=== PATIENT | female | born 1970 | race Caucasian/White ===

== ENCOUNTER 2016-11-28 13:13 | Emergency (ER) | payer SELFPAY ==
[~2016-11-28] VITALS: Ht 167.6 cm; Wt 93.9 kg
[~2016-11-28 13:13] MED LIST: AMITRIPTYLINE 550 MG PO; CENTRUM1 TAB PO; KEFLEX 500MG.500 MG PO; METOPROLOL SUCC50 M1 PO; OMEPRAZOLE DR20 MG PO; PREDNISONE 20MG20 MG PO; PROZAC 20MG CAP20 MG PO
--- OUTSIDE RECORDS SUMMARY | 2016-11-28 13:21 | External Medical Summary Rpt ---
Author Author [employer] Organization [employer] Address Unknown Phone Unavailable Purpose Continuity of Care Document - through 2016
--- OUTSIDE RECORDS SUMMARY | 2016-11-28 13:21 | External Medical Summary Rpt ---
Demographics Preferred Language [place] Marital Status Unknown Quaker Affiliation Unknown Race Unknown Ethnic Group Unknown Author Author , Organization [employer] Address Unknown Phone Unavailable Purpose Continuity of Care Document - through 2016 Immunization No patient found.
--- OUTSIDE RECORDS SUMMARY | 2016-11-28 13:21 | External Medical Summary Rpt ---
Demographics Preferred Language [place] Marital Status Unknown Baptism Affiliation Unknown Race Unknown Ethnic Group Unknown Author Author , Organization [employer] Address Unknown Phone Unavailable Purpose Continuity of Care Document - through 2016 Immunization No patient found.
[2016-11-28] MEDS ORDERED: AMOXICILLIN875 MG PO (13:37)
--- NOTE | 2016-11-28 13:38 | Urgent Treatment Center Report ---
History of Present Issue Date/Time Seen by Provider 11/28/16 3492 Visit Reason Pt arrived:Walked Presenting Problem:PT STATES HAVING COLD/ALLERGY SYMPTOMS FOR TWO WEEKS. STATES NECK PAIN FOR TWO WEEKS WELL. STATES THIS MORNING SHE BEGAN HAVING PAIN IN HER RIGHT EAR Location if Accident: Onset of symptoms date/time:/ or onset unknown for:MEDICAL HX UNKNOWN Have you (or family members/close friends) recently traveled outside the [place]? N If Yes, where/when: Have you had exposure to infectious disease within the past month? TB? Other? Specify: c/o mild intermittent neck pain only on right side x 2 weeks. Fluctuates from neck to jaw pain. Associated w/ rhinorrhea, nasal congestion, sneezing the last 2-3 weeks "if not longer". Right ear pain started this morning "and I realized it was probably all related". Hasn't taken or tried anything consistently for symptoms. No known sick contacts. Denies ear drainage but hearing "muffled". No fever, aches, chills. Mild intermittent headaches but no difficulty with neck ROM. Source patient Exam Limitations no limitations ALLERGIES Uncoded Allergies: STEROIDS (11/28/16) History Medical History General CAD? No Angina: No MS: No Hypertension? Yes Hyperlipidemia? No CHF? No DVT? No PE? No COPD? No Asthma? No Anemia? No GERD? No Gastric ulcers? No GI Bleed? No Hernia? No Thyroid Problems? No Hypothyroidism? No CVA? No Seizures? No Diabetes? No Renal Insuffiency? No UTI? No Stones? No GB Disease: No Nephritic Syndrome? No Asplenia? No Hepatitis? No Sickle Cell Disease? No Arthritis? No Migraines? No Cataracts? No Glaucoma? No MRSA? No HIV? No TB? No Anxiety? No Depression? No Cancer? No Immunization HX DT/Tetanus Unknown Surgical Hx Previous Surgery?Y RIGHT HIP SURGERY KNEE SURGERY VERONICA CARPAL TUNNEL Social History Smoking Hx Smoker: Current Every Day Smoker Tobacco: Yes Type Cigarettes Packs/day < 1 Pack Alcohol Alcohol: No Review of Systems All Other Systems Reviewed and Negative Constitutional see HPI Eyes denies drainage ENT see HPI. denies: throat pain. Respiratory denies cough Cardiovascular denies chest pain Gastrointestinal denies no symptoms reported Skin denies rash Psychiatric/Neurological see HPI, denies other (dizziness) Physical Exam Vital Signs Vital Signs Date Time Temp Pulse Resp B/P Pulse O2 O2 Flow FiO2 Ox Delivery Rate 11/28 1348 98.4 78 18 192/109 98 11/28 1324 98.4 78 18 192/109 98 General Appearance normal appearance, no apparent distress, talkative Eye Exam - bilateral eye normal exam Ear, Nose, Throat normal pharynx, normal nares, left EAC and TM normal, right EAC normal but TM intact, bright red, bulging significantly, very tender Neck normal inspection, non-tender, supple, full range of motion Respiratory Status No: respiratory distress, productive cough, non productive cough. Lung Sounds anterior: lungs clear. posterior: lungs clear. bilateral: lungs clear. Cardiovascular regular rate/rhythm, no peripheral edema, no murmur Neurologic alert, oriented x 3 Mental status normal mood/affect Skin intact, normal color, warm/dry Lymphatic no adenopathy Medical Decision Making LABS/Meds/Orders Pt receiving controlled substance in ED? No Departure Departure Time of Disposition 1336 Disposition DC Home or Self Care(routine) Clinical Impression Primary Impression: Right otitis media Qualifiers: Otitis media type: unspecified Chronicity: unspecified Qualified Code: H66.91 - Otitis media, unspecified, right ear Secondary Impressions: High blood pressure Qualifiers: Hypertension type: essential hypertension Qualified Code: I10 - Essential (primary) hypertension Condition STABLE Referrals NO REFERRAL Primary care * Immediately for new or worsening symptoms, no noticeable improvement in 48-72 hours AND in 10-14 days to ensure ears are back to baseline. Patient Instructions DI for Otitis Media (Middle Ear Infection)-Child Additional Instructions * monitor your BP closely. Extremely elevated today. I am aware you have a history and haven't taken your medication. STRONGLY recommend you take your medication today and be sure to follow up if remains >140/90. * Start antibiotic GEORGE and be sure to take as ordered for the FULL length of time although you should start to feel better in 24-48 hours. * Monitor Temp. Tylenol every 4 hours as needed and/or ibuprofen every 6 hours as needed (as long as your primary care doctor has told you that it is ok to take both) for fever/aches/pain. ER if fever no less than 101 despite tylenol and ibuprofen * Encourage fluids, water, gatorade, powerade, pedialyte if /toddler/child * warm compress often helps when placed over ear * sleep elevated * Immediately for new or worsening symptoms, no noticeable improvement in 48-72 hours AND in 10-14 days to ensure ears are back to baseline. Discharge Counseling Counseled pt/family regarding diagnosis, medications/RX, home care, follow up needs Prescriptions Current Visit Scripts AMOXICILLIN (Amoxicillin 875MG Tab) 875 MG PO BID #20 TAB at 9180
[2016-11-28 13:48] VITALS: BP 192/109
== END 2016-11-28 13:49 | disposition home or self-care (01) ==
LOC: UTC 13:13
DX: H66.91 Otitis media, unspecified, right ear (principal); I10 Essential (primary) hypertension; Z72.0 Tobacco use

== ENCOUNTER 2017-02-18 21:59 | Emergency (ER) | payer SELFPAY ==
[~2017-02-18] VITALS: Ht 167.6 cm; Wt 98.9 kg
[~2017-02-18 21:59] MED LIST changes: +AMOXICILLIN875 MG PO
--- NOTE | 2017-02-18 23:14 | Emergency Room Report ---
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 N Clinical Suspician of Infection? N Mental Status: 1 - Regular (Normal Baseline) Sepsis Risk:Low Sepsis Risk Have you (or family members/close friends) recently traveled outside the [place]? N If Yes, where/when: Have you had exposure to infectious disease within the past month? N TB? Other? Specify: Source patient, RN notes reviewed, family, old records Exam Limitations no limitations Comment pt with elevated bp over the last few days with known hx of htn but has been off meds for several months - pt does not known which meds she was on- she reports not feeling well but no chest pain/sob or focal neuro sx - Cardiac Chest Pain Chest pain indicative of cardiac No Timing/Duration this evening Severity moderate ALLERGIES Uncoded Allergies: steroids (Intermediate, flusing and itching 02/18/17) Home Medications Active Scripts AMOXICILLIN (Amoxicillin 875MG Tab) 875 MG PO BID #20 TAB Prov: 11/28/16 History Medical History General CAD? No Angina: No [place]: No Hypertension? Yes Hyperlipidemia? No CHF? No DVT? No PE? No COPD? No Asthma? No Anemia? No GERD? No Gastric ulcers? No GI Bleed? No Hernia? No Thyroid Problems? No Hypothyroidism? No CVA? No Seizures? No Diabetes? No Renal Insuffiency? No End Stage Renal Disease? No UTI? No Stones? No GB Disease: No Nephritic Syndrome? No Asplenia? No Hepatitis? No Sickle Cell Disease? No Arthritis? No Migraines? No Cataracts? No Glaucoma? No MRSA? No HIV? No TB? No Anxiety? No Depression? No Cancer? 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 Respiratory denies cough, denies shortness of breath, denies wheezing Cardiovascular denies chest pain, denies palpitations, denies syncope Gastrointestinal denies abdominal pain, denies diarrhea, denies vomiting Genitourinary denies: dysuria. Musculoskeletal denies back pain, denies joint pain, denies neck pain Skin denies rash Psychiatric/Neurological denies headache, denies seizure Physical Exam Vital Signs Vital Signs Date Time Temp Pulse Resp B/P Pulse O2 O2 Flow FiO2 Ox Delivery Rate 02/19 0004 77 20 178/94 98 02/18 2348 76 20 178/107 97 02/18 2254 81 20 168/106 97 02/18 2212 98.8 88 20 160/111 97 - WBC >12,000 or <4,000 or 10% bands? 2 or more SIRS Criteria Met? B/P:178/94 MAP:127 Creatinine >2.0? UA output<0.5ml/kg/hr for 2 hrs? Platelet count >100,000? Lactate >2.0mmol/1? INR >1.2 or PTT > than 60 sec? Evidence of Organ Dysfunction? Provider documented clinical suspician of infection? N Sepsis Criteria Count: 1 Sepsis Risk: Low Sepsis Risk General Appearance no apparent distress Eye Exam - bilateral eye PERRL, bilateral eye EOMI Ear, Nose, Throat normal ENT inspection Neck supple Respiratory Status No: respiratory distress. Lung Sounds bilateral: lungs clear. 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 No Results/Orders Laboratory Tests 02/18/17 2330: Sodium 141, Potassium 3.5, Chloride 107, Carbon Dioxide 26, BUN 13, Creatinine 0.8, Estimated Creat Clear 139, Estimated GFR (MDRD) 78, Glucose 98, Calcium 8.4 L, Total Bilirubin 0.2, AST 8 L, ALT 13, Alkaline Phosphatase 91, Creatine Kinase 119, CK-MB (CK-2) Rel Index 0.4, CK and CKMB Interp < 0.5, Troponin I < 0.02, Total Protein 6.8, Albumin 3.5, Globulin 3.3 H, Albumin/Globulin Ratio 1.1, WBC 6.4, RBC 4.86, Hgb 14.8, Hct 45.5, MCV 93.7, RDW 13.2, Plt Count 157, MPV 10.1, Gran % 37.2, Gran # 2.4, Lymphocytes % 49.4, Monocytes % 6.9, Eosinophils % 5.8, Basophils % 0.6, Lymphocytes # 3.1, Monocytes # 0.4, Eosinophils # 0.4, Basophils # 0.0, PUBS MCHC 32.5, MCH 30.4 Current Medication Orders Sig/Paco Start time Last Medication Dose Route Stop Time Status Admin Clonidine HCl 0 .STK-MED ONE 02/18 2325 DC .ROUTE Clonidine HCl 0.1 MG ONCE ONE 02/18 2315 DC 02/18 PO 02/184 Orders Procedure Date/time Status COMPLETE METABOLIC PANEL 02/18 2314 Complete CBC WITH AUTO DIFF 02/18 2314 Complete CARDIAC ENZYMES 02/18 2314 Complete Departure Departure Time of Disposition 0028 Disposition DC Home or Self Care(routine) Clinical Impression Primary Impression: Hypertension Qualifiers: Hypertension type: essential hypertension Qualified Code: I10 - Essential (primary) hypertension Condition STABLE Patient Instructions Treatments for High Blood Pressure: More Than Just Taking a Pill Additional Instructions use meds and see pcp this week for follow up Discharge Counseling Counseled pt/family regarding diagnosis, test results, medications/RX, follow up needs Prescriptions Current Visit Scripts LISINOPRIL (Lisinopril) 10 MG PO DAILY #21 TAB ED Critical Care Critical Care No at 0030
--- NOTE | 2017-02-18 23:14 | Emergency Room Report ---
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 N Clinical Suspician of Infection? N Mental Status: 1 - Regular (Normal Baseline) Sepsis Risk:Low Sepsis Risk Have you (or family members/close friends) recently traveled outside the [place]? N If Yes, where/when: Have you had exposure to infectious disease within the past month? N TB? Other? Specify: Source patient, RN notes reviewed, family, old records Exam Limitations no limitations Comment pt with elevated bp over the last few days with known hx of htn but has been off meds for several months - pt does not known which meds she was on- she reports not feeling well but no chest pain/sob or focal neuro sx - Cardiac Chest Pain Chest pain indicative of cardiac No Timing/Duration this evening Severity moderate ALLERGIES Uncoded Allergies: steroids (Intermediate, flusing and itching 02/18/17) Home Medications Active Scripts AMOXICILLIN (Amoxicillin 875MG Tab) 875 MG PO BID #20 TAB Prov: 11/28/16 History Medical History General CAD? No Angina: No [place]: No Hypertension? Yes Hyperlipidemia? No CHF? No DVT? No PE? No COPD? No Asthma? No Anemia? No GERD? No Gastric ulcers? No GI Bleed? No Hernia? No Thyroid Problems? No Hypothyroidism? No CVA? No Seizures? No Diabetes? No Renal Insuffiency? No End Stage Renal Disease? No UTI? No Stones? No GB Disease: No Nephritic Syndrome? No Asplenia? No Hepatitis? No Sickle Cell Disease? No Arthritis? No Migraines? No Cataracts? No Glaucoma? No MRSA? No HIV? No TB? No Anxiety? No Depression? No Cancer? 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 Respiratory denies cough, denies shortness of breath, denies wheezing Cardiovascular denies chest pain, denies palpitations, denies syncope Gastrointestinal denies abdominal pain, denies diarrhea, denies vomiting Genitourinary denies: dysuria. Musculoskeletal denies back pain, denies joint pain, denies neck pain Skin denies rash Psychiatric/Neurological denies headache, denies seizure Physical Exam Vital Signs Vital Signs Date Time Temp Pulse Resp B/P Pulse O2 O2 Flow FiO2 Ox Delivery Rate 02/19 0004 77 20 178/94 98 02/18 2348 76 20 178/107 97 02/18 2254 81 20 168/106 97 02/18 2212 98.8 88 20 160/111 97 - WBC >12,000 or <4,000 or 10% bands? 2 or more SIRS Criteria Met? B/P:178/94 MAP:127 Creatinine >2.0? UA output<0.5ml/kg/hr for 2 hrs? Platelet count >100,000? Lactate >2.0mmol/1? INR >1.2 or PTT > than 60 sec? Evidence of Organ Dysfunction? Provider documented clinical suspician of infection? N Sepsis Criteria Count: 1 Sepsis Risk: Low Sepsis Risk General Appearance no apparent distress Eye Exam - bilateral eye PERRL, bilateral eye EOMI Ear, Nose, Throat normal ENT inspection Neck supple Respiratory Status No: respiratory distress. Lung Sounds bilateral: lungs clear. 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 No Results/Orders Laboratory Tests 02/18/17 2330: Sodium 141, Potassium 3.5, Chloride 107, Carbon Dioxide 26, BUN 13, Creatinine 0.8, Estimated Creat Clear 139, Estimated GFR (MDRD) 78, Glucose 98, Calcium 8.4 L, Total Bilirubin 0.2, AST 8 L, ALT 13, Alkaline Phosphatase 91, Creatine Kinase 119, CK-MB (CK-2) Rel Index 0.4, CK and CKMB Interp < 0.5, Troponin I < 0.02, Total Protein 6.8, Albumin 3.5, Globulin 3.3 H, Albumin/Globulin Ratio 1.1, WBC 6.4, RBC 4.86, Hgb 14.8, Hct 45.5, MCV 93.7, RDW 13.2, Plt Count 157, MPV 10.1, Gran % 37.2, Gran # 2.4, Lymphocytes % 49.4, Monocytes % 6.9, Eosinophils % 5.8, Basophils % 0.6, Lymphocytes # 3.1, Monocytes # 0.4, Eosinophils # 0.4, Basophils # 0.0, PUBS MCHC 32.5, MCH 30.4 Current Medication Orders Sig/Paco Start time Last Medication Dose Route Stop Time Status Admin Clonidine HCl 0 .STK-MED ONE 02/18 2325 DC .ROUTE Clonidine HCl 0.1 MG ONCE ONE 02/18 2315 DC 02/18 PO 02/184 Orders Procedure Date/time Status COMPLETE METABOLIC PANEL 02/18 2314 Complete CBC WITH AUTO DIFF 02/18 2314 Complete CARDIAC ENZYMES 02/18 2314 Complete Departure Departure Time of Disposition 0028 Disposition DC Home or Self Care(routine) Clinical Impression Primary Impression: Hypertension Qualifiers: Hypertension type: essential hypertension Qualified Code: I10 - Essential (primary) hypertension Condition STABLE Patient Instructions Treatments for High Blood Pressure: More Than Just Taking a Pill Additional Instructions use meds and see pcp this week for follow up Discharge Counseling Counseled pt/family regarding diagnosis, test results, medications/RX, follow up needs Prescriptions Current Visit Scripts LISINOPRIL (Lisinopril) 10 MG PO DAILY #21 TAB ED Critical Care Critical Care No at 0030
[2017-02-18 23:48] LABS: HEMOGLOBIN 14.8 g/dL (12.2-16.2); LYMPH # 3.1 K/mm3 (0.7-4.5); LYMPH % 49.4 % (10-50.0)
[2017-02-19 00:15] LABS: BUN 13 mg/dL (7-18); GFR (ESTIMATED) 78 ML/MIN (59-)
[2017-02-19] MEDS ORDERED: LISINOPRIL 10MG10 MG PO (00:30)
[2017-02-19 00:38] VITALS: BP 178/94
== END 2017-02-19 00:39 | disposition home or self-care (01) ==
LOC: ER 21:59
PROVIDERS: Emergency Medicine
DX: I10 Essential (primary) hypertension (principal); T46.4X6A Underdosing of angiotensin-converting-enzyme inhibitors, initial encounter; Z91.128 Patient's intentional underdosing of medication regimen for other reason